=== PATIENT | male | born 1955 | race Two or more races ===

== ENCOUNTER → 2024-03-06 17:56 | Outpatient (REF) | payer MEDICARE, OTHER, SELFPAY | LOC: OLAB 17:56 | PROVIDERS: ATTENDING PHYSICIAN Specialist | DX: R97.20 Elevated prostate specific antigen [PSA] (principal) | CPT/HCPCS: 88305 ==

== ENCOUNTER → 2025-05-22 09:59 | Outpatient (REF) | payer MEDICARE, OTHER, SELFPAY | LOC: RAD 09:59 | PROVIDERS: ATTENDING PHYSICIAN Internal Medicine Cardiovascular Disease; FAMILY PHYSICIAN Internal Medicine | DX: E78.00 Pure hypercholesterolemia, unspecified (principal); R73.03 Prediabetes; R94.39 Abnormal result of other cardiovascular function study | CPT/HCPCS: 75574; Q9967 ==